=== PATIENT | female | born 1950 | race Two or more races ===

== ENCOUNTER 2018-02-12 19:52 | Inpatient (IN) | payer MEDICARE, MEDICAID ==
[~2018-02-12] VITALS: Ht 165.1 cm; Wt 83.7 kg
[~2018-02-12 19:52] MED LIST: ATEN-60; FLUO10CA15; SIMV5TAB50; TRIA50TA2
[2018-02-12] MEDS ORDERED: SODIUM CHLORIDE 0.9% 1,000 ML IV ONE (20:08)
[2018-02-12] MEDS ORDERED: LORazepam 2MG/ML-1ML VIAL IV ONE (20:15)
[2018-02-12 20:47] LABS: Basophils # (auto) 0 uL; Eosinophils # (auto) 0 uL; Eosinophils % (auto) 0.5 % (0.0-7.0); Hemoglobin 11.3 g/dL (12.2-16.2); Lymphocytes % (auto) 9.3 % (10.0-50.0); Monocytes # (auto) 0.5 uL; Neutrophils % (auto) 79.8 % (37.0-80.0); Nucleated Red Blood Cells % 0.4 %; Platelet Count (auto) 124 10^3/uL (140-450)
[2018-02-12 20:50] LABS: Basophils % (auto) 0.3 % (0.0-2.0); Hematocrit 32.2 % (36.0-46.0); Lymphocytes # (auto) 0.4 uL; Mean Corpuscular Hemoglobin 39.7 pg (28.0-32.0); Mean Corpuscular Hgb Conc. 35.2 g/dL (32.0-36.0); Mean Corpuscular Volume 112.8 fL (80.0-100.0); Monocytes % (auto) 10.1 % (0.0-12.0); Neutrophils # (auto) 3.8 uL; Red Blood Cells 2.85 10^6/uL (4.0-5.20); Red Cell Distribution Width 16.9 % (11.8-14.3); White Blood Cell 4.7 10^3/uL (4.4-10.8)
[2018-02-12 21:03] LABS: INR 1.29 (0.9-1.15); Partial Thromboplastin Time 28.9 sec (23.78-33.04); Prothrombin Time 13.6 sec (9.27-12.13)
[2018-02-12 21:07] LABS: Alanine Aminotransferase 117 U/L (13-56); Albumin 1.6 g/dL (3.4-5.0); Alkaline Phosphatase 241 U/L (45-117); Amylase 92 U/L (25-115); Anion Gap 6 (5-15); Aspartate Aminotransferase 116 U/L (15-37); BUN/Creatinine Ratio 28.1; Bilirubin, Total 9.2 mg/dL (0.2-1.0); Blood Alcohol < 3.0 mg/dL (0-5); Blood Urea Nitrogen 34 mg/dL (7-18); Calcium 8.5 mg/dL (8.5-10.1); Carbon Dioxide 21 mmol/L (21-32); Chloride 110 mmol/L (98-107); GFR African American 57 mL/min; GFR Non-African American 47 mL/min; Glucose 95 mg/dL (74-106); Lipase 206 U/L (73-393); Magnesium 2.7 mg/dL (1.6-2.6); Potassium 4.3 mmol/L (3.5-5.1); Sodium 137 mmol/L (136-145); Total Protein 7.8 g/dL (6.4-8.2)
[2018-02-12 22:18] LABS: Urine Bacteria NONE SEEN /hpf (None Seen); Urine Blood Negative /uL (Negative); Urine Hyaline Cast FEW /lpf (0 - 2); Urine Mucus FEW (None Seen); Urine Specific Gravity 1.023 (1.001-1.035); Urine WBC 4 /hpf (0 - 5)
[2018-02-12 22:27] LABS: Alcohol, Urine < 3.0 mg/dL (0-5); Amphetamine Screen, Urine NEGATIVE (NEGATIVE); Barbiturate Scree,Urine NEGATIVE (NEGATIVE); Benzodiazephine Screen, Urine NEGATIVE (NEGATIVE); Cannabinoid Screen, Urine NEGATIVE (NEGATIVE); Cocaine Screen, Urine NEGATIVE (NEGATIVE); Opiate Scree,Urine NEGATIVE (NEGATIVE); Phencyclidine Screen, Urine NEGATIVE (NEGATIVE)
[2018-02-13] VITALS (61 sets, daily range): BP systolic 84–131; BP diastolic 32–61
[2018-02-13] MEDS ORDERED: ONDANSETRON HCL 4 MG/2 ML VIAL IV PRN (02:30)
[2018-02-13] MEDS ORDERED: ALBUMIN 25% 100 ML IV ONE (02:30)
[2018-02-13] MEDS: LORazepam 2MG/ML-1ML VIAL IV PRN (02:53)
[2018-02-13] MEDS ORDERED: diphenhdrAMINE HCL 50 MG/1 ML VL IV ONE (03:45)
[2018-02-13] MEDS ORDERED: methylPREDNISolone SOD SUCC 125 MG/2 ML VL ONE (05:34)
[2018-02-13] MEDS ORDERED: NOREPINEPHRINE 8 MG/250ML KIT 250 ML IV ONE (05:36)
[2018-02-13] MEDS: NOREPINEPHRINE 8 MG/250ML KIT 250 ML IV SCH ×2 (05:50→19:55)
[2018-02-13] MEDS ORDERED: LACTULOSE 20Gm/30ML SOLN PO SCH (06:00)
[2018-02-13] MEDS: LACTULOSE 20Gm/30ML SOLN PO SCH ×3 (06:13→22:31)
[2018-02-13 07:33] LABS: Basophils # (auto) 0 uL; Basophils % (auto) 0.1 % (0.0-2.0); Eosinophils # (auto) 0.1 uL; Monocytes # (auto) 0.6 uL
[2018-02-13 07:35] LABS: Eosinophils % (auto) 1.2 % (0.0-7.0); Hematocrit 30.1 % (36.0-46.0); Hemoglobin 10.3 g/dL (12.2-16.2); Lymphocytes # (auto) 0.7 uL; Lymphocytes % (auto) 13.7 % (10.0-50.0); Mean Corpuscular Hemoglobin 39.1 pg (28.0-32.0); Mean Corpuscular Hgb Conc. 34.4 g/dL (32.0-36.0); Mean Corpuscular Volume 113.4 fL (80.0-100.0); Monocytes % (auto) 11.1 % (0.0-12.0); Neutrophils # (auto) 3.9 uL; Neutrophils % (auto) 73.9 % (37.0-80.0); Nucleated Red Blood Cells % 0.3 %; Platelet Count (auto) 121 10^3/uL (140-450); Red Blood Cells 2.65 10^6/uL (4.0-5.20); White Blood Cell 5.2 10^3/uL (4.4-10.8)
[2018-02-13 07:48] LABS: BUN/Creatinine Ratio 32.2; Bilirubin, Total 9.4 mg/dL (0.2-1.0); Calcium 8.3 mg/dL (8.5-10.1); Potassium 4.3 mmol/L (3.5-5.1); Total Protein 7.5 g/dL (6.4-8.2)
[2018-02-13] MEDS ORDERED: FUROSEMIDE 40 MG/4 ML VIAL IV ONE (08:00)
[2018-02-13] MEDS ORDERED: SPIRONOLACTONE 25 MG TAB PO SCH ×2 (10:00→22:00)
[2018-02-13] MEDS: ALBUMIN 25% 50 ML IV SCH ×3 (12:35→22:33)
[2018-02-14] VITALS (90 sets, daily range): BP systolic 73–145; BP diastolic 34–87
[2018-02-14] MEDS: LORazepam 2MG/ML-1ML VIAL IV PRN (00:36)
[2018-02-14 04:08] LABS: White Blood Cell 5.7 10^3/uL (4.4-10.8)
[2018-02-14 04:10] LABS: Hematocrit 31.7 % (36.0-46.0); Mean Corpuscular Hemoglobin 39.7 pg (28.0-32.0); Mean Corpuscular Hgb Conc. 34.8 g/dL (32.0-36.0); Mean Corpuscular Volume 114.1 fL (80.0-100.0); Platelet Count (auto) 144 10^3/uL (140-450); Red Blood Cells 2.78 10^6/uL (4.0-5.20); Red Cell Distribution Width 16.7 % (11.8-14.3)
[2018-02-14 04:15] LABS: Band Neutrophils % (manual) 0; Basophils % (manual) 0 (0.0-2.0); Blast Cells 0; Metamyelocytes % 0; Myelocytes % 0; Promyelocytes % 0; Reactive Lymphocytes 0
[2018-02-14 04:25] LABS: Calcium 8.1 mg/dL (8.5-10.1); Potassium 4.1 mmol/L (3.5-5.1)
[2018-02-14] MEDS: ALBUMIN 25% 50 ML IV SCH ×3 (04:50→16:40)
[2018-02-14 04:57] LABS: Eosinophils % (manual) 1 (0-7); Lymphocytes % (manual) 13 (10.0-50.0); Monocytes % (manual) 11 (0-12)
[2018-02-14] MEDS: NOREPINEPHRINE 8 MG/250ML KIT 250 ML IV SCH (06:13)
[2018-02-14] MEDS: LACTULOSE 20Gm/30ML SOLN PO SCH ×3 (07:16→22:07)
[2018-02-14] MEDS ORDERED: SODIUM CHLORIDE 0.9% 1,000 ML IV ONE (07:45)
[2018-02-14] MEDS ORDERED: FUROSEMIDE 40 MG/4 ML VIAL IV SCH (10:00)
[2018-02-14] MEDS: SPIRONOLACTONE 25 MG TAB PO SCH ×2 (10:28→22:08)
[2018-02-14] MEDS: LACTULOSE 20Gm/30ML SOLN NG SCH (23:53)
[2018-02-15] VITALS (79 sets, daily range): BP systolic 83–140; BP diastolic 33–85
[2018-02-15] MEDS: NOREPINEPHRINE 8 MG/250ML KIT 250 ML IV SCH ×2 (03:31→18:30)
[2018-02-15] MEDS: LACTULOSE 20Gm/30ML SOLN NG SCH ×4 (06:13→18:00)
[2018-02-15 06:58] LABS: Hematocrit 30.9 % (36.0-46.0); Hemoglobin 10.5 g/dL (12.2-16.2); Mean Corpuscular Hgb Conc. 34.1 g/dL (32.0-36.0); Mean Corpuscular Volume 117.2 fL (80.0-100.0); Platelet Count (auto) 94 10^3/uL (140-450); Red Blood Cells 2.64 10^6/uL (4.0-5.20); Red Cell Distribution Width 18.2 % (11.8-14.3); White Blood Cell 5.4 10^3/uL (4.4-10.8)
[2018-02-15 07:08] LABS: Albumin 2.4 g/dL (3.4-5.0); BUN/Creatinine Ratio 29.4; Bilirubin, Direct 7.7 mg/dL (0-0.2); Bilirubin, Total 11.5 mg/dL (0.2-1.0); Calcium 8.1 mg/dL (8.5-10.1); Magnesium 2.5 mg/dL (1.6-2.6); Potassium 3.8 mmol/L (3.5-5.1)
[2018-02-15 07:13] LABS: Basophils % (manual) 0 (0.0-2.0); Blast Cells 0; Metamyelocytes % 0; Myelocytes % 0; Promyelocytes % 0; Reactive Lymphocytes 0
[2018-02-15 07:35] LABS: Band Neutrophils % (manual) 2; Eosinophils % (manual) 1 (0-7); Lymphocytes % (manual) 5 (10.0-50.0); Monocytes % (manual) 8 (0-12)
[2018-02-15] MEDS: SPIRONOLACTONE 25 MG TAB PO SCH ×2 (10:39→22:00)
[2018-02-15] MEDS ORDERED: CALCIUM CARB 500 MG CHEW TAB PO ONE (11:45)
[2018-02-15] MEDS: PANTOPRAZOLE 40 MG/10 ML VIAL IV SCH (12:33)
[2018-02-15] MEDS: LORazepam 2MG/ML-1ML VIAL IV PRN (21:18)
[2018-02-15] MEDS ORDERED: SODIUM CHLORIDE 0.9% 500 ML IV ONE (21:30)
[2018-02-16] VITALS (80 sets, daily range): BP systolic 42–144; BP diastolic 24–90
[2018-02-16] MEDS: LACTULOSE 20Gm/30ML SOLN NG SCH ×4 (00:16→18:05)
[2018-02-16 05:14] LABS: Basophils # (auto) 0 uL; Eosinophils # (auto) 0 uL; Hemoglobin 10.7 g/dL (12.2-16.2)
[2018-02-16 05:16] LABS: Basophils % (auto) 0.3 % (0.0-2.0); Eosinophils % (auto) 0.7 % (0.0-7.0); Hematocrit 29.8 % (36.0-46.0); Lymphocytes # (auto) 0.6 uL; Lymphocytes % (auto) 9.4 % (10.0-50.0); Mean Corpuscular Hemoglobin 41.3 pg (28.0-32.0); Mean Corpuscular Hgb Conc. 35.9 g/dL (32.0-36.0); Mean Corpuscular Volume 115.1 fL (80.0-100.0); Monocytes # (auto) 0.5 uL; Monocytes % (auto) 8.7 % (0.0-12.0); Neutrophils # (auto) 4.8 uL; Neutrophils % (auto) 80.9 % (37.0-80.0); Nucleated Red Blood Cells % 0.1 %; Platelet Count (auto) 90 10^3/uL (140-450); Red Blood Cells 2.59 10^6/uL (4.0-5.20); Red Cell Distribution Width 16.7 % (11.8-14.3); White Blood Cell 5.9 10^3/uL (4.4-10.8)
[2018-02-16 05:31] LABS: BUN/Creatinine Ratio 27.2; Potassium 3.8 mmol/L (3.5-5.1)
[2018-02-16] MEDS: SODIUM CHLORIDE 0.9% 1,000 ML IV SCH ×2 (10:39→21:00)
[2018-02-16] MEDS: SPIRONOLACTONE 25 MG TAB PO SCH ×2 (10:39→21:52)
[2018-02-16] MEDS: PANTOPRAZOLE 40 MG/10 ML VIAL IV SCH (10:39)
[2018-02-16] MEDS: LORazepam 2MG/ML-1ML VIAL IV PRN ×2 (11:27→21:53)
[2018-02-16] MEDS: ALBUMIN 25% 50 ML IV SCH ×3 (12:15→23:50)
[2018-02-16] MEDS ORDERED: SPIRONOLACTONE 25 MG TAB PO SCH (18:45)
[2018-02-17] VITALS (10 sets, daily range): BP systolic 81–142; BP diastolic 39–58
[2018-02-17] MEDS: LACTULOSE 20Gm/30ML SOLN NG SCH ×5 (00:03→21:54)
[2018-02-17 05:24] LABS: Basophils # (auto) 0 uL; Hemoglobin 8.9 g/dL (12.2-16.2); Lymphocytes # (auto) 0.5 uL; Monocytes # (auto) 0.5 uL; White Blood Cell 6.1 10^3/uL (4.4-10.8)
[2018-02-17 05:26] LABS: Basophils % (auto) 0.3 % (0.0-2.0); Eosinophils # (auto) 0 uL; Eosinophils % (auto) 0.7 % (0.0-7.0); Hematocrit 25.8 % (36.0-46.0); Lymphocytes % (auto) 8.5 % (10.0-50.0); Mean Corpuscular Hemoglobin 39.8 pg (28.0-32.0); Mean Corpuscular Hgb Conc. 34.5 g/dL (32.0-36.0); Mean Corpuscular Volume 115.5 fL (80.0-100.0); Monocytes % (auto) 8.7 % (0.0-12.0); Neutrophils % (auto) 81.8 % (37.0-80.0); Nucleated Red Blood Cells % 0.2 %; Platelet Count (auto) 78 10^3/uL (140-450); Red Blood Cells 2.23 10^6/uL (4.0-5.20); Red Cell Distribution Width 17.5 % (11.8-14.3)
[2018-02-17 05:38] LABS: Potassium 3.8 mmol/L (3.5-5.1)
[2018-02-17] MEDS: ALBUMIN 25% 50 ML IV SCH ×3 (06:12→17:48)
[2018-02-17] MEDS ORDERED: FUROSEMIDE 20 MG/2 ML VIAL IV ONE (09:30)
[2018-02-17] MEDS: SOD CHL 0.45% 1,000 ML IV SCH ×2 (10:15→19:30)
[2018-02-17] MEDS: PANTOPRAZOLE 40 MG/10 ML VIAL IV SCH (10:18)
[2018-02-17] MEDS: SPIRONOLACTONE 25 MG TAB PO SCH ×2 (10:20→21:54)
[2018-02-17] MEDS: SODIUM BICARBONATE 650 MG TAB PO SCH ×2 (10:20→21:54)
[2018-02-17] MEDS ORDERED: ATENOLOL 25 MG TAB PO ONE (16:30)
[2018-02-17] MEDS: LORazepam 2MG/ML-1ML VIAL IV PRN (22:12)
[2018-02-18] VITALS (9 sets, daily range): BP systolic 78–120; BP diastolic 22–69
[2018-02-18 05:20] LABS: White Blood Cell 4.9 10^3/uL (4.4-10.8)
[2018-02-18 05:21] LABS: Hematocrit 24.4 % (36.0-46.0); Hemoglobin 8.5 g/dL (12.2-16.2); Mean Corpuscular Hemoglobin 41.3 pg (28.0-32.0); Mean Corpuscular Volume 118.1 fL (80.0-100.0); Platelet Count (auto) 65 10^3/uL (140-450); Red Blood Cells 2.06 10^6/uL (4.0-5.20); Red Cell Distribution Width 17.6 % (11.8-14.3)
[2018-02-18 05:28] LABS: Basophils % (manual) 0 (0.0-2.0); Blast Cells 0; Myelocytes % 0; Promyelocytes % 0; Reactive Lymphocytes 0
[2018-02-18 05:35] LABS: Albumin 2.1 g/dL (3.4-5.0); Calcium 7.1 mg/dL (8.5-10.1); Potassium 3.6 mmol/L (3.5-5.1)
[2018-02-18 05:37] LABS: Bilirubin, Total 9.9 mg/dL (0.2-1.0); Total Protein 5.9 g/dL (6.4-8.2)
[2018-02-18 06:15] LABS: Band Neutrophils % (manual) 4; Eosinophils % (manual) 1 (0-7); Metamyelocytes % 1
[2018-02-18 06:16] LABS: Lymphocytes % (manual) 10 (10.0-50.0); Monocytes % (manual) 10 (0-12)
[2018-02-18] MEDS: LACTULOSE 20Gm/30ML SOLN NG SCH ×2 (06:34→22:00)
[2018-02-18] MEDS: SOD CHL 0.45% 1,000 ML IV SCH ×3 (08:35→22:42)
[2018-02-18] MEDS: SODIUM BICARBONATE 650 MG TAB PO SCH ×2 (10:00→21:36)
[2018-02-18] MEDS: PANTOPRAZOLE 40 MG/10 ML VIAL IV SCH (10:00)
[2018-02-18] MEDS: SPIRONOLACTONE 25 MG TAB PO SCH ×2 (10:00→22:00)
[2018-02-18] MEDS: ATENOLOL 25 MG TAB PO SCH (10:00)
[2018-02-18] MEDS: FUROSEMIDE 20 MG/2 ML VIAL IV SCH (10:49)
[2018-02-18] MEDS ORDERED: RIFAXIMIN PO SCH (12:00)
[2018-02-18] MEDS ORDERED: LACTULOSE 20Gm/30ML SOLN NG SCH (12:00)
[2018-02-18] MEDS: RIFAXIMIN 550 MG TAB PO SCH ×2 (13:19→21:35)
[2018-02-19] VITALS (7 sets, daily range): BP systolic 87–122; BP diastolic 47–61
[2018-02-19] MEDS: LORazepam 2MG/ML-1ML VIAL IV PRN (01:18)
[2018-02-19 06:01] LABS: Platelet Count (auto) 66 10^3/uL (140-450)
[2018-02-19 06:03] LABS: BUN/Creatinine Ratio 32.2; Calcium 7.4 mg/dL (8.5-10.1); Hematocrit 27.1 % (36.0-46.0); Hemoglobin 9.7 g/dL (12.2-16.2); Mean Corpuscular Hemoglobin 42.2 pg (28.0-32.0); Mean Corpuscular Hgb Conc. 35.9 g/dL (32.0-36.0); Mean Corpuscular Volume 117.7 fL (80.0-100.0); Potassium 4.2 mmol/L (3.5-5.1); Red Cell Distribution Width 18.4 % (11.8-14.3); White Blood Cell 5.3 10^3/uL (4.4-10.8)
[2018-02-19 06:19] LABS: Albumin 2.4 g/dL (3.4-5.0); Bilirubin, Total 10.9 mg/dL (0.2-1.0)
[2018-02-19 06:21] LABS: Basophils % (manual) 0 (0.0-2.0); Blast Cells 0; Metamyelocytes % 0; Myelocytes % 0; Promyelocytes % 0; Reactive Lymphocytes 0
[2018-02-19] MEDS: LACTULOSE 20Gm/30ML SOLN NG SCH ×3 (06:23→22:04)
[2018-02-19 09:07] LABS: Band Neutrophils % (manual) 6; Eosinophils % (manual) 1 (0-7); Lymphocytes % (manual) 3 (10.0-50.0); Monocytes % (manual) 10 (0-12)
[2018-02-19] MEDS: SPIRONOLACTONE 25 MG TAB PO SCH ×2 (10:00→22:04)
[2018-02-19] MEDS: PANTOPRAZOLE 40 MG/10 ML VIAL IV SCH (10:51)
[2018-02-19] MEDS: FUROSEMIDE 20 MG/2 ML VIAL IV SCH (10:51)
[2018-02-19] MEDS: RIFAXIMIN 550 MG TAB PO SCH ×2 (12:51→22:02)
[2018-02-19] MEDS: ATENOLOL 25 MG TAB PO SCH (12:51)
[2018-02-19] MEDS: SODIUM BICARBONATE 650 MG TAB PO SCH ×2 (12:52→22:02)
[2018-02-20 04:52] VITALS: BP 89/50
[2018-02-20 05:42] LABS: Basophils # (auto) 0 uL; Basophils % (auto) 0.2 % (0.0-2.0); Hemoglobin 9.3 g/dL (12.2-16.2); Monocytes # (auto) 0.7 uL; Neutrophils # (auto) 3.5 uL; White Blood Cell 5.2 10^3/uL (4.4-10.8)
[2018-02-20 05:43] LABS: Eosinophils # (auto) 0 uL; Eosinophils % (auto) 0.9 % (0.0-7.0); Hematocrit 26.3 % (36.0-46.0); Lymphocytes # (auto) 0.9 uL; Lymphocytes % (auto) 17.9 % (10.0-50.0); Mean Corpuscular Hemoglobin 40.5 pg (28.0-32.0); Mean Corpuscular Hgb Conc. 35.4 g/dL (32.0-36.0); Mean Corpuscular Volume 114.3 fL (80.0-100.0); Monocytes % (auto) 13.3 % (0.0-12.0); Neutrophils % (auto) 67.7 % (37.0-80.0); Nucleated Red Blood Cells % 0.2 %; Platelet Count (auto) 74 10^3/uL (140-450); Red Cell Distribution Width 17.6 % (11.8-14.3)
[2018-02-20] MEDS: LACTULOSE 20Gm/30ML SOLN NG SCH ×3 (05:56→22:19)
[2018-02-20 06:04] LABS: Potassium 4.3 mmol/L (3.5-5.1)
[2018-02-20 06:08] LABS: BUN/Creatinine Ratio 28.1; Calcium 7.4 mg/dL (8.5-10.1)
[2018-02-20 06:58] LABS: Bilirubin, Direct 7.1 mg/dL (0-0.2); Bilirubin, Total 9.7 mg/dL (0.2-1.0); Total Protein 6.3 g/dL (6.4-8.2)
[2018-02-20 08:28] VITALS: BP 81/34
[2018-02-20] MEDS: ATENOLOL 25 MG TAB PO SCH (10:00)
[2018-02-20] MEDS: SPIRONOLACTONE 25 MG TAB PO SCH ×2 (10:00→22:20)
[2018-02-20] MEDS: FUROSEMIDE 20 MG/2 ML VIAL IV SCH (10:00)
[2018-02-20] MEDS: RIFAXIMIN 550 MG TAB PO SCH ×2 (10:00→22:19)
[2018-02-20] MEDS ORDERED: SODIUM CHLORIDE 0.9% 500 ML IV ONE (10:30)
[2018-02-20] MEDS: ALBUMIN 25% 50 ML IV SCH ×3 (10:53→22:20)
[2018-02-20] MEDS: SODIUM BICARBONATE 650 MG TAB PO SCH ×2 (10:53→22:19)
[2018-02-20] MEDS: PANTOPRAZOLE 40 MG/10 ML VIAL IV SCH (10:53)
[2018-02-20 12:30] VITALS: BP 112/59
[2018-02-20 17:33] VITALS: BP 92/54
[2018-02-20 22:00] VITALS: BP 101/51
[2018-02-20] MEDS: LORazepam 2MG/ML-1ML VIAL IV PRN (22:20)
[2018-02-21] VITALS (7 sets, daily range): BP systolic 83–105; BP diastolic 42–74
[2018-02-21] MEDS: ALBUMIN 25% 50 ML IV SCH ×3 (04:16→17:38)
[2018-02-21 05:41] LABS: Hematocrit 24.7 % (36.0-46.0); Hemoglobin 8.5 g/dL (12.2-16.2)
[2018-02-21 05:48] LABS: Mean Corpuscular Hemoglobin 39.4 pg (28.0-32.0); Mean Corpuscular Hgb Conc. 34.5 g/dL (32.0-36.0); Mean Corpuscular Volume 114.3 fL (80.0-100.0); Platelet Count (auto) 74 10^3/uL (140-450); Red Blood Cells 2.17 10^6/uL (4.0-5.20); Red Cell Distribution Width 17.6 % (11.8-14.3); White Blood Cell 5.5 10^3/uL (4.4-10.8)
[2018-02-21 05:50] LABS: Basophils % (manual) 0 (0.0-2.0); Blast Cells 0; Metamyelocytes % 0; Myelocytes % 0; Promyelocytes % 0; Reactive Lymphocytes 0
[2018-02-21] MEDS: LACTULOSE 20Gm/30ML SOLN NG SCH ×3 (06:00→21:46)
[2018-02-21 06:03] LABS: Albumin 2.5 g/dL (3.4-5.0); BUN/Creatinine Ratio 25.6; Bilirubin, Direct 6.7 mg/dL (0-0.2); Calcium 7.9 mg/dL (8.5-10.1); Potassium 4.1 mmol/L (3.5-5.1); Total Protein 6.6 g/dL (6.4-8.2)
[2018-02-21 06:07] LABS: Band Neutrophils % (manual) 2; Eosinophils % (manual) 1 (0-7); Lymphocytes % (manual) 9 (10.0-50.0); Monocytes % (manual) 10 (0-12)
[2018-02-21] MEDS: FUROSEMIDE 20 MG/2 ML VIAL IV SCH (09:02)
[2018-02-21] MEDS: PANTOPRAZOLE 40 MG/10 ML VIAL IV SCH (09:02)
[2018-02-21] MEDS: SODIUM BICARBONATE 650 MG TAB PO SCH ×2 (09:03→21:46)
[2018-02-21] MEDS: SPIRONOLACTONE 25 MG TAB PO SCH ×2 (09:03→21:47)
[2018-02-21] MEDS: ATENOLOL 25 MG TAB PO SCH (09:04)
[2018-02-21] MEDS: RIFAXIMIN 550 MG TAB PO SCH ×2 (09:04→21:47)
[2018-02-21] MEDS: ALBUTEROL SULF 2.5 MG/0.5ML(0.5%) NEB SOLN NEB SCH ×2 (10:41→18:18)
[2018-02-21] MEDS: IPRATROPIUM BROM 0.5 MG/2.5ML INH SOL NEB SCH ×2 (10:42→18:18)
[2018-02-21] MEDS: NutriHep RTU 240 mL Unflavored PO SCH (22:00)
[2018-02-22] MEDS: LORazepam 2MG/ML-1ML VIAL IV PRN ×2 (00:15→18:45)
[2018-02-22] MEDS: ALBUMIN 25% 50 ML IV SCH (00:30)
[2018-02-22 05:10] VITALS: BP 91/48
[2018-02-22] MEDS: LACTULOSE 20Gm/30ML SOLN NG SCH ×3 (05:35→21:11)
[2018-02-22] MEDS: IPRATROPIUM BROM 0.5 MG/2.5ML INH SOL NEB SCH ×4 (05:55→19:07)
[2018-02-22] MEDS: ALBUTEROL SULF 2.5 MG/0.5ML(0.5%) NEB SOLN NEB SCH ×4 (05:55→19:07)
[2018-02-22 06:18] LABS: White Blood Cell 4.8 10^3/uL (4.4-10.8)
[2018-02-22 06:20] LABS: Hematocrit 22.9 % (36.0-46.0); Mean Corpuscular Hemoglobin 41.4 pg (28.0-32.0); Mean Corpuscular Hgb Conc. 35.5 g/dL (32.0-36.0); Platelet Count (auto) 66 10^3/uL (140-450); Red Blood Cells 1.96 10^6/uL (4.0-5.20); Red Cell Distribution Width 18.4 % (11.8-14.3)
[2018-02-22 06:22] LABS: Hemoglobin 8.2 g/dL (12.2-16.2); Mean Corpuscular Volume 116.7 fL (80.0-100.0)
[2018-02-22 06:23] LABS: Basophils % (manual) 0 (0.0-2.0); Blast Cells 0; Metamyelocytes % 0; Myelocytes % 0; Promyelocytes % 0; Reactive Lymphocytes 0
[2018-02-22 06:51] LABS: Albumin 2.7 g/dL (3.4-5.0); BUN/Creatinine Ratio 25.7; Bilirubin, Direct 6.4 mg/dL (0-0.2); Bilirubin, Total 8.9 mg/dL (0.2-1.0); Calcium 7.8 mg/dL (8.5-10.1); Potassium 4.5 mmol/L (3.5-5.1); Total Protein 6.6 g/dL (6.4-8.2)
[2018-02-22 06:53] LABS: Band Neutrophils % (manual) 2; Eosinophils % (manual) 2 (0-7); Lymphocytes % (manual) 24 (10.0-50.0); Monocytes % (manual) 8 (0-12)
[2018-02-22 08:00] VITALS: BP 95/52
[2018-02-22] MEDS: ALBUMIN 25% 100 ML IV SCH ×3 (08:21→17:27)
[2018-02-22 09:23] VITALS: BP 95/52
[2018-02-22] MEDS: NutriHep RTU 240 mL Unflavored PO SCH ×2 (10:00→21:12)
[2018-02-22] MEDS ORDERED: FUROSEMIDE 20 MG/2 ML VIAL IV SCH (10:00)
[2018-02-22] MEDS: PANTOPRAZOLE 40 MG/10 ML VIAL IV SCH (10:46)
[2018-02-22] MEDS: SODIUM BICARBONATE 650 MG TAB PO SCH ×2 (10:46→21:12)
[2018-02-22] MEDS: SPIRONOLACTONE 25 MG TAB PO SCH ×2 (10:47→21:12)
[2018-02-22] MEDS: RIFAXIMIN 550 MG TAB PO SCH ×2 (10:48→21:13)
[2018-02-22] MEDS: ATENOLOL 25 MG TAB PO SCH (10:48)
[2018-02-22 13:00] VITALS: BP 97/51
[2018-02-22 17:00] VITALS: BP 98/55
[2018-02-22 22:16] VITALS: BP 91/51
[2018-02-23] MEDS: ALBUMIN 25% 100 ML IV SCH ×3 (00:01→12:41)
[2018-02-23] MEDS: ALBUTEROL SULF 2.5 MG/0.5ML(0.5%) NEB SOLN NEB SCH ×4 (00:53→19:44)
[2018-02-23] MEDS: IPRATROPIUM BROM 0.5 MG/2.5ML INH SOL NEB SCH ×4 (00:53→19:44)
[2018-02-23 05:48] VITALS: BP 94/59
[2018-02-23] MEDS: LACTULOSE 20Gm/30ML SOLN NG SCH ×3 (06:14→22:34)
[2018-02-23 06:15] LABS: Basophils # (auto) 0 uL; Eosinophils # (auto) 0 uL; Lymphocytes # (auto) 0.5 uL
[2018-02-23 06:17] LABS: Basophils % (auto) 0.3 % (0.0-2.0); Eosinophils % (auto) 0.7 % (0.0-7.0); Lymphocytes % (auto) 11.3 % (10.0-50.0); Mean Corpuscular Hemoglobin 41.2 pg (28.0-32.0); Mean Corpuscular Hgb Conc. 34.9 g/dL (32.0-36.0); Monocytes # (auto) 0.4 uL; Monocytes % (auto) 9.5 % (0.0-12.0); Neutrophils # (auto) 3.6 uL; Neutrophils % (auto) 78.2 % (37.0-80.0); Red Blood Cells 1.95 10^6/uL (4.0-5.20); White Blood Cell 4.6 10^3/uL (4.4-10.8)
[2018-02-23 06:24] LABS: Mean Corpuscular Volume 117.8 fL (80.0-100.0); Platelet Count (auto) 67 10^3/uL (140-450)
[2018-02-23 06:45] LABS: Albumin 3.5 g/dL (3.4-5.0); Bilirubin, Direct 6.1 mg/dL (0-0.2); Bilirubin, Total 9.1 mg/dL (0.2-1.0); Total Protein 7.1 g/dL (6.4-8.2)
[2018-02-23] MEDS: methylPREDNISolone SOD SUCC 40 MG/ML VL IV SCH ×3 (06:57→22:34)
[2018-02-23] MEDS ORDERED: DOXYCYCLINE 100 MG TAB/CAP PO ONE (07:00)
[2018-02-23 07:08] LABS: BUN/Creatinine Ratio 26.4; Calcium 7.5 mg/dL (8.5-10.1); Potassium 4.3 mmol/L (3.5-5.1)
[2018-02-23] MEDS ORDERED: DOXYCYCLINE 100MG/250ML 250 ML IV ONE (07:30)
[2018-02-23 08:00] VITALS: BP 119/61
[2018-02-23 09:00] VITALS: BP 119/61
[2018-02-23] MEDS: NutriHep RTU 240 mL Unflavored PO SCH ×2 (10:00→21:07)
[2018-02-23] MEDS: PANTOPRAZOLE 40 MG/10 ML VIAL IV SCH (11:02)
[2018-02-23] MEDS: FUROSEMIDE 20 MG/2 ML VIAL IV SCH (11:02)
[2018-02-23] MEDS: SODIUM BICARBONATE 650 MG TAB PO SCH ×2 (11:03→22:34)
[2018-02-23] MEDS: ATENOLOL 25 MG TAB PO SCH (11:03)
[2018-02-23] MEDS: SPIRONOLACTONE 25 MG TAB PO SCH ×2 (11:04→22:35)
[2018-02-23] MEDS: RIFAXIMIN 550 MG TAB PO SCH ×2 (11:22→22:35)
[2018-02-23] MEDS: LORazepam 2MG/ML-1ML VIAL IV PRN (11:39)
[2018-02-23 13:00] VITALS: BP 109/69
[2018-02-23 17:00] VITALS: BP 118/84
[2018-02-23 22:00] VITALS: BP 102/56
[2018-02-23] MEDS ORDERED: DOXYCYCLINE 100 MG TAB/CAP PO SCH (22:00)
[2018-02-23] MEDS: DOXYCYCLINE 100MG/250ML 250 ML IV SCH (22:34)
[2018-02-24] MEDS: ALBUTEROL SULF 2.5 MG/0.5ML(0.5%) NEB SOLN NEB SCH ×4 (00:37→19:20)
[2018-02-24] MEDS: IPRATROPIUM BROM 0.5 MG/2.5ML INH SOL NEB SCH ×4 (00:37→19:20)
[2018-02-24 04:56] VITALS: BP 98/65
[2018-02-24] MEDS: methylPREDNISolone SOD SUCC 40 MG/ML VL IV SCH ×3 (06:17→21:43)
[2018-02-24] MEDS: LACTULOSE 20Gm/30ML SOLN NG SCH ×3 (06:18→21:43)
[2018-02-24 07:46] LABS: Basophils # (auto) 0 uL; Basophils % (auto) 0.1 % (0.0-2.0); Eosinophils # (auto) 0 uL; Hematocrit 22.2 % (36.0-46.0); Hemoglobin 7.8 g/dL (12.2-16.2); Lymphocytes # (auto) 0.4 uL; Mean Corpuscular Hgb Conc. 35.1 g/dL (32.0-36.0)
[2018-02-24 07:49] LABS: BUN/Creatinine Ratio 27.1; Lymphocytes % (auto) 6.7 % (10.0-50.0); Mean Corpuscular Hemoglobin 41.9 pg (28.0-32.0); Mean Corpuscular Volume 119.4 fL (80.0-100.0); Monocytes # (auto) 0.1 uL; Monocytes % (auto) 2.7 % (0.0-12.0); Neutrophils # (auto) 4.9 uL; Neutrophils % (auto) 90.5 % (37.0-80.0); Nucleated Red Blood Cells % 0.1 %; Platelet Count (auto) 63 10^3/uL (140-450); Potassium 4.7 mmol/L (3.5-5.1); Red Blood Cells 1.86 10^6/uL (4.0-5.20); Red Cell Distribution Width 19.3 % (11.8-14.3); White Blood Cell 5.4 10^3/uL (4.4-10.8)
[2018-02-24 09:00] VITALS: BP 107/70
[2018-02-24 09:01] VITALS: BP 98/65
[2018-02-24] MEDS: ATENOLOL 25 MG TAB PO SCH (10:00)
[2018-02-24] MEDS: DOXYCYCLINE 100MG/250ML 250 ML IV SCH ×2 (11:09→21:43)
[2018-02-24] MEDS: SODIUM BICARBONATE 650 MG TAB PO SCH ×2 (11:09→21:43)
[2018-02-24] MEDS: RIFAXIMIN 550 MG TAB PO SCH ×2 (11:09→21:43)
[2018-02-24] MEDS: SPIRONOLACTONE 25 MG TAB PO SCH ×2 (11:10→21:43)
[2018-02-24] MEDS: PANTOPRAZOLE 40 MG/10 ML VIAL IV SCH (11:18)
[2018-02-24] MEDS: NutriHep RTU 240 mL Unflavored PO SCH ×2 (11:19→21:43)
[2018-02-24] MEDS: FUROSEMIDE 20 MG/2 ML VIAL IV SCH (11:54)
[2018-02-24 13:00] VITALS: BP 104/57
[2018-02-24] MEDS ORDERED: LORazepam 2MG/ML-1ML VIAL IV PRN (15:15)
[2018-02-24 17:00] VITALS: BP 102/65
[2018-02-24 22:08] VITALS: BP 104/59
[2018-02-25] MEDS: IPRATROPIUM BROM 0.5 MG/2.5ML INH SOL NEB SCH ×4 (00:22→18:01)
[2018-02-25] MEDS: ALBUTEROL SULF 2.5 MG/0.5ML(0.5%) NEB SOLN NEB SCH ×4 (00:22→18:01)
[2018-02-25] MEDS: LACTULOSE 20Gm/30ML SOLN NG SCH (06:00)
[2018-02-25] MEDS: methylPREDNISolone SOD SUCC 40 MG/ML VL IV SCH (06:00)
[2018-02-25 06:05] LABS: Calcium 8.5 mg/dL (8.5-10.1); Potassium 4.6 mmol/L (3.5-5.1)
[2018-02-25 09:01] VITALS: BP 96/52
[2018-02-25 09:05] LABS: Hemoglobin 8.7 g/dL (12.2-16.2)
[2018-02-25] MEDS: ATENOLOL 25 MG TAB PO SCH (09:46)
[2018-02-25] MEDS: SODIUM BICARBONATE 650 MG TAB PO SCH ×2 (09:50→21:33)
[2018-02-25] MEDS: PANTOPRAZOLE 40 MG TAB PO SCH (09:50)
[2018-02-25] MEDS: NutriHep RTU 240 mL Unflavored PO SCH ×2 (09:51→21:33)
[2018-02-25] MEDS: RIFAXIMIN 550 MG TAB PO SCH ×2 (09:51→21:33)
[2018-02-25] MEDS ORDERED: BUMETANIDE (0.25MG/ML) 4 ML VIAL IV ONE (11:30)
[2018-02-25 12:30] VITALS: BP 97/57
[2018-02-25 16:49] VITALS: BP 90/51
[2018-02-25 21:30] VITALS: BP 96/61
[2018-02-25] MEDS: LACTULOSE 20Gm/30ML SOLN PO SCH (21:33)
[2018-02-26] MEDS: ALBUTEROL SULF 2.5 MG/0.5ML(0.5%) NEB SOLN NEB SCH ×4 (00:18→18:28)
[2018-02-26] MEDS: IPRATROPIUM BROM 0.5 MG/2.5ML INH SOL NEB SCH ×4 (00:18→18:28)
[2018-02-26 05:00] VITALS: BP 95/58
[2018-02-26 07:00] LABS: BUN/Creatinine Ratio 33.9; Calcium 8.2 mg/dL (8.5-10.1); Potassium 4.7 mmol/L (3.5-5.1)
[2018-02-26 08:30] VITALS: BP 83/47
[2018-02-26] MEDS: ATENOLOL 25 MG TAB PO SCH (10:00)
[2018-02-26 11:58] LABS: Creatinine, Urine 119 mg/dL (30.0-125.0); Sodium Urine 9 mmol/L (40-220)
[2018-02-26] MEDS: LACTULOSE 20Gm/30ML SOLN PO SCH ×2 (12:01→22:00)
[2018-02-26] MEDS: NutriHep RTU 240 mL Unflavored PO SCH ×2 (12:01→22:00)
[2018-02-26] MEDS: PANTOPRAZOLE 40 MG TAB PO SCH (12:01)
[2018-02-26] MEDS: RIFAXIMIN 550 MG TAB PO SCH ×2 (12:02→22:13)
[2018-02-26 12:03] LABS: % Iron Saturation 59.2 % (15-50)
[2018-02-26 12:12] LABS: Ferritin 287.1 ng/mL (10-322); Folate (Folic Acid) 10.26 ng/mL (5.38-24)
[2018-02-26] MEDS: MIDODRINE HCL 10 MG TAB PO SCH ×2 (12:17→18:00)
[2018-02-26 13:00] VITALS: BP 93/52
[2018-02-26 13:28] LABS: Hepatitis B Surface Antigen Negative (Negative); Hepatitis C Antibody Negative (Negative)
[2018-02-26] MEDS: OCTREOTIDE ACETATE 100 MCG/ML VL SUBCUT SCH ×2 (14:18→22:14)
[2018-02-26 17:00] VITALS: BP 97/51
[2018-02-26 22:00] VITALS: BP 96/59
[2018-02-27 05:00] VITALS: BP 97/57
[2018-02-27] MEDS: OCTREOTIDE ACETATE 100 MCG/ML VL SUBCUT SCH ×3 (06:34→21:56)
[2018-02-27] MEDS: MIDODRINE HCL 10 MG TAB PO SCH ×3 (06:34→15:59)
[2018-02-27] MEDS: IPRATROPIUM BROM 0.5 MG/2.5ML INH SOL NEB SCH ×4 (07:09→19:01)
[2018-02-27] MEDS: ALBUTEROL SULF 2.5 MG/0.5ML(0.5%) NEB SOLN NEB SCH ×4 (07:09→19:01)
[2018-02-27 07:36] LABS: Basophils # (auto) 0 uL; Eosinophils # (auto) 0 uL; Hemoglobin 8.6 g/dL (12.2-16.2); Monocytes # (auto) 0.3 uL; Neutrophils # (auto) 4.4 uL
[2018-02-27 07:37] LABS: Basophils % (auto) 0.3 % (0.0-2.0); Eosinophils % (auto) 0.4 % (0.0-7.0); Hematocrit 25.7 % (36.0-46.0); Lymphocytes # (auto) 0.5 uL; Lymphocytes % (auto) 8.8 % (10.0-50.0); Mean Corpuscular Hemoglobin 39.5 pg (28.0-32.0); Mean Corpuscular Hgb Conc. 33.4 g/dL (32.0-36.0); Mean Corpuscular Volume 118.2 fL (80.0-100.0); Monocytes % (auto) 6.3 % (0.0-12.0); Neutrophils % (auto) 84.2 % (37.0-80.0); Nucleated Red Blood Cells % 0.6 %; Platelet Count (auto) 75 10^3/uL (140-450); Red Blood Cells 2.18 10^6/uL (4.0-5.20); Red Cell Distribution Width 19.1 % (11.8-14.3); White Blood Cell 5.2 10^3/uL (4.4-10.8)
[2018-02-27 07:57] LABS: Albumin 2.9 g/dL (3.4-5.0); BUN/Creatinine Ratio 41.1; Bilirubin, Total 7.3 mg/dL (0.2-1.0); Calcium 7.7 mg/dL (8.5-10.1); Potassium 4.8 mmol/L (3.5-5.1); Total Protein 6.9 g/dL (6.4-8.2)
[2018-02-27 08:14] VITALS: BP 92/61
[2018-02-27 08:31] LABS: INR 1.55 (0.9-1.15); Partial Thromboplastin Time 33.2 sec (23.78-33.04); Prothrombin Time 16.2 sec (9.27-12.13)
[2018-02-27] MEDS: PANTOPRAZOLE 40 MG TAB PO SCH (09:11)
[2018-02-27] MEDS: NutriHep RTU 240 mL Unflavored PO SCH ×2 (09:12→21:55)
[2018-02-27] MEDS: RIFAXIMIN 550 MG TAB PO SCH ×2 (09:12→22:31)
[2018-02-27] MEDS: LACTULOSE 20Gm/30ML SOLN PO SCH ×2 (10:00→21:55)
[2018-02-27] MEDS: ATENOLOL 25 MG TAB PO SCH (10:00)
[2018-02-27 11:58] VITALS: BP 97/48
[2018-02-27 15:56] VITALS: BP 92/54
[2018-02-27 22:14] VITALS: BP 94/51
[2018-02-28] MEDS: IPRATROPIUM BROM 0.5 MG/2.5ML INH SOL NEB SCH ×3 (00:59→12:02)
[2018-02-28] MEDS: ALBUTEROL SULF 2.5 MG/0.5ML(0.5%) NEB SOLN NEB SCH ×3 (00:59→12:02)
[2018-02-28] MEDS: MIDODRINE HCL 10 MG TAB PO SCH ×2 (06:00→12:00)
[2018-02-28] MEDS: OCTREOTIDE ACETATE 100 MCG/ML VL SUBCUT SCH ×2 (06:00→14:00)
[2018-02-28 09:00] VITALS: BP 95/58
[2018-02-28] MEDS: NutriHep RTU 240 mL Unflavored PO SCH (10:00)
[2018-02-28] MEDS: PANTOPRAZOLE 40 MG TAB PO SCH (10:00)
[2018-02-28] MEDS: RIFAXIMIN 550 MG TAB PO SCH (10:00)
[2018-02-28] MEDS: LACTULOSE 20Gm/30ML SOLN PO SCH ×2 (10:00→14:22)
[2018-02-28 11:02] LABS: Albumin 2.7 g/dL (3.4-5.0); BUN/Creatinine Ratio 42.2; Bilirubin, Total 8.7 mg/dL (0.2-1.0); Calcium 7.6 mg/dL (8.5-10.1); Potassium 4.2 mmol/L (3.5-5.1); Total Protein 6.7 g/dL (6.4-8.2)
[2018-02-28 13:00] VITALS: BP 101/50
== END 2018-02-28 17:10 | DRG 441 ==
LOC: EDBD 19:52 → ER 20:09 → TELE 20:10 → ICU WEST 02-13 08:12 → DOU IN ICU 02-15 17:46 → TELE-WESTW 02-19 20:40
PROVIDERS: ADMIT Nurse Practitioner Family; ATTEND Internal Medicine
PROC: 0W9G3ZZ Drainage of Peritoneal Cavity, Percutaneous Approach (ICD-10-PCS; principal; 2018-02-13)
PROC: 0W9G3ZZ Drainage of Peritoneal Cavity, Percutaneous Approach (ICD-10-PCS; 2018-02-19)
PROC: 0W9G3ZZ Drainage of Peritoneal Cavity, Percutaneous Approach (ICD-10-PCS; 2018-02-28)
DX: K72.90 Hepatic failure, unspecified without coma (principal); I21.4 Non-ST elevation (NSTEMI) myocardial infarction; E43 Unspecified severe protein-calorie malnutrition; N17.0 Acute kidney failure with tubular necrosis; K76.7 Hepatorenal syndrome; J81.1 Chronic pulmonary edema; E87.2 Acidosis; R18.8 Other ascites; D61.818 Other pancytopenia; D68.9 Coagulation defect, unspecified; K76.6 Portal hypertension; D69.6 Thrombocytopenia, unspecified; I12.9 Hypertensive chronic kidney disease with stage 1 through stage 4 chronic kidney disease, or unspecified chronic kidney disease; N20.0 Calculus of kidney; E78.5 Hyperlipidemia, unspecified; E87.70 Fluid overload, unspecified; F17.210 Nicotine dependence, cigarettes, uncomplicated; F41.9 Anxiety disorder, unspecified; K57.90 Diverticulosis of intestine, part unspecified, without perforation or abscess without bleeding; N18.3 Chronic kidney disease, stage 3 (moderate); Z66 Do not resuscitate; K75.81 Nonalcoholic steatohepatitis (NASH); D53.9 Nutritional anemia, unspecified; T50.2X5A Adverse effect of carbonic-anhydrase inhibitors, benzothiadiazides and other diuretics, initial encounter; K74.60 Unspecified cirrhosis of liver; Z82.49 Family history of ischemic heart disease and other diseases of the circulatory system; Z85.038 Personal history of other malignant neoplasm of large intestine; Y92.89 Other specified places as the place of occurrence of the external cause; Z68.30 Body mass index [BMI] 30.0-30.9, adult
CPT/HCPCS: 10022; 36415; 36600; 49083; 71045; 74176; 76700; 76705; 76942; 80048; 80053; 80076; 80307; 80320; 81001; 82040; 82140; 82150; 82270; 82390; 82570; 82607; 82728; 82746; 82805; 82962; 83540; 83550; 83605; 83690; 83735; 83986; 84100; 84300; 84484; 85007; 85014; 85018; 85025; 85027; 85610; 85730; 86038; 86704; 86803; 86850; 86900; 86901; 87040; 87081; 87205; 87340; 89051; 93005; 93306; 94640; 94761; 96361; 96374; 96376; A6257; C9113; J2405; J3490; P9047